=== PATIENT | female | born 1975 | race African-American/Black ===

== ENCOUNTER 2016-03-19 11:56 | Emergency (ER) | payer BC ==
[2016-03-19] MEDS ORDERED: ONDANSETRON ODT 4 MG TAB ONE (14:14)
[2016-03-19] MEDS ORDERED: MORPHINE 4 MG/ML SYR ONE (14:14)
== END 2016-03-19 16:03 | disposition home or self-care (01) ==
LOC: ER 11:56
CPT/HCPCS: 36415; 76830; 80053; 81001; 83690; 84703; 85025; 87491; 87591; 87800; 96372